=== PATIENT | female | born 1995 | race Caucasian/White ===

== ENCOUNTER 2016-11-11 09:56 | Inpatient (IN) | payer OTHER ==
[~2016-11-11] VITALS: Ht 160 cm; Wt 65.3 kg
[2016-11-11] MEDS ORDERED: PRENATAL COMPLE1 TAB PO (10:22)
[2016-11-11] MEDS ORDERED: FERROUS SULFAT325 MG PO (10:24)
[2016-11-11 10:25] VITALS: Ht 160 cm; Wt 65.3 kg
[2016-11-11 10:56] LABS: APPEARANCE HAZY (CLEAR); COLOR YELLOW (YELLOW)
[2016-11-11 10:57] LABS: BACTERIA FEW /hpf (NONE SEEN); BILIRUBIN NEGATIVE (NEGATIVE); GLUCOSE NEGATIVE (NEGATIVE); KETONE NEGATIVE (NEGATIVE); LEUKOCYTE ESTERASE NEGATIVE (NEGATIVE); MUCUS <1+ /lpf (NONE SEEN); NITRITE NEGATIVE (NEGATIVE); PROTEIN TRACE mg/dL (NEGATIVE); SPECIFIC GRAVITY 1.015 (1.005-1.020); UROBILINOGEN NORMAL (NORMAL); WHITE CELLS - URINE 0-5 /hpf (0-5)
[2016-11-11 12:01] LABS: HEMATOCRIT 34.8 % (36.0-48.0); HEMOGLOBIN 11.6 g/dL (12-16); MCH 30.4 pg (26.0-34.0); MCHC 33.3 g/dL (31.0-37.0); MCV 91.3 fL (80.0-100.0); MEAN PLATELET VOLUME 10.1 fL (7.4-10.4); RBC 3.81 10x6/uL (4.00-5.40); RDW 13.5 % (11.5-14.5); WBC 12.5 10x3/uL (4.8-10.8)
[2016-11-11 19:21] LABS: UDS - AMPHET NEGATIVE QUAL (NEGATIVE); UDS - BARB NEGATIVE QUAL (NEGATIVE); UDS - BENZO NEGATIVE QUAL (NEGATIVE); UDS - COCAINE NEGATIVE QUAL (NEGATIVE); UDS - METH NEGATIVE QUAL (NEGATIVE); UDS - OPIATE NEGATIVE QUAL (NEGATIVE); UDS - PCP NEGATIVE QUAL (NEGATIVE); UDS - THC NEGATIVE QUAL (NEGATIVE)
[2016-11-12] VITALS (15 sets, daily range): BP systolic 111–131; BP diastolic 59–92
--- NOTE | 2016-11-12 02:48 | NUR ---
0231 VIABLE BABY GIRL DELIVERED CORD BLOOD AND GASES DONE AND SENT OUT, [place].
--- NOTE | 2016-11-12 03:42 | NUR ---
FUNDUS AT UMBILICUS AND FIRM, LOCHIA SCANT
--- NOTE | 2016-11-12 03:47 | NUR ---
PT RECEIVED VIA RECOVERY ROOM NURSE AT THIS TIME. AAOX3. ORIENTED PT TO ROOM AND CALL LIGHT. VERBALIZED UNDERSTANDING. VSS. IV NOTED TO LEFT WRIST INFUSING NS @ 125 AND 20 OF PIT WITH MEPERIDINE TECH ED/WOODSHOP TEACHER. IV SITE- PATENT. DRESSING CDI. INSTRUCTED PT ON HOW TO USE TECH ED/WOODSHOP TEACHER. PT VERBALIZES UNDERSTANDING. HEART RRR. LUNG SOUNDS CLEAR BILATERALLY. INSTRUCTED PT ON HOW TO USE IS. PT VERBALIZES UNDERSTANDING. PULLED 2000 AT THIS TIME. BOWEL SOUNDS ACTIVE X4 QUADRENTS. ABDOMEN SOFT WITH TENDERNESS. LOW TRANSVERSE INCISION NOTED TO ABDOMEN WITH BULKY DRESSING. DRESSING CDI. FUNDUS FIRM AND MIDLINE U/U. LIGHT LOCHIA RUBRA NOTED TO NIDA PAD AT THIS TME. SCDS INITIATED TO BLE. PT RATES PAIN 2/10 STATES SHE STILL FEELS NUMB. PT DENIES NEEDS AT THIS TIME. BED LOW. PHONE AND CALL LIGHT IN REACH. SRX2.
--- NOTE | 2016-11-12 04:39 | NUR ---
EMPTIED 1500 CC KIRTI URINE FROM JIM AT THIS TIME. PT REQUESTS ICE WATER. FOB AT BEDSIDE. PT STATES PAIN IS 2/10. DENIES OTHER NEEDS. BED LOW. PHONE AND CALL LIGHT IN REACH. SRX2.
--- NOTE | 2016-11-12 05:30 | NUR ---
PT STATES SHE IS BEGINNING TO FEEL MORE PAIN. RATES PAIN 8/10. ADMINISTERED TORADOL IVP PER ORDERS AT THIS TIME. PT DENIES OTHER NEEDS. BED LOW. PHONE AND CALL LIGHT IN REACH. SRX2.
--- NOTE | 2016-11-12 06:05 | NUR ---
REASSESSED PTS PAIN AT THIS TIME. PT STATES PAIN IS BETTER. RATES PAIN 3/10. AT THIS TIME. PT DENIES NEEDS. VITAL SIGNS CONTINUE TO REMAIN STABLE.
--- NOTE | 2016-11-12 07:15 | NUR ---
CHANGED PT PINK AND BLUE PAD AT THIS TIME. MODERATE LOCHIA RUBRA NOTED TO PADS. PLACED NEW PADS AND NIDA PAD ON PT. PT DENIES NEEDS AT THIS TIME. BED LOW. PHONE AND CALL LIGHT IN REACH. SRX2.
--- NOTE | 2016-11-12 07:20 | NUR ---
PT SITTING IN BED TYPING ON PHONE. SHIFT ASSESSMENT WAS DONE AND DOCUMENTED. CHANGED MARY AND PAD WITH MODERATED BLEEDING BUT SCANT WHEN ASSESSING FUNDUS WHICH WAS 1U FIRM AND MIDLINE. 150ML OF URINE DRAINING TO JIM BAG WAS YELLOW, SLIGHTLY CLOUDY. PROVIDED FRESH ICEWATER AND ENCOURAGED TO DRINK. STATES PAIN 2 ON NUMERIC SCALE. STATES 'I DON'T HAVE TO PUSH THE BUTTON VERY OFTEN TO KEEP IT FROM HURTING'. S/R UP X 2, BED IN LOWEST POSITION, CALL LIGHT WITHIN REACH. WILL CONTINUE TO MONITOR.
[2016-11-12 07:26] LABS: RAPID PLASMA REAGIN Non Reactive (Non Reactive)
--- NOTE | 2016-11-12 07:45 | NUR ---
PATIENT IS AWAKE AND ALERT, DRINKING HER CL BREAKFAST. DISCUSSED THE POC FOR TODAY. SHE UNDERSTANDS THAT HER CATHETER AND IVF WILL BE DC'D TODAY AT 1500. SHE DISCUSSED HER LABOR AND DELIVERY AND WE DISCUSSED HER WOUND CARE. FOB IS NOT IN THE ROOM AT THIS TIME. STRAIGHTENED HER BELONGINGS AND DISCUSSED HER DIET. ASSESSMENT COMPLETED. VSS. CALL LIGHT IS WITHIN HER REACH. MONITORING.
--- NOTE | 2016-11-12 10:30 | NUR ---
PATIENT SITTING UP IN HER BED, HEAD ELEVATED IN HI FOWLERS, SHE IS HER INFANT. SHE DENIES NEEDS AT THIS TIME.
--- NOTE | 2016-11-12 11:45 | NUR ---
PERIPADS CHANGED. BLEEDING IS LIGHT. HER FF,MIDLINE, AT THE UMBILICUS. URINE REMAINS PATENT TO THE BEDSIDE DRAINAGE, IT IS GOLD COLORED. ENCOURAGED HER TO DRINK FLUIDS. SHE STATES THAT SHE IS HUNGRY AND WONDERS WHEN SHE WILL RECEIVE REGULAR DIET. EXPLAINED THE REASONS THAT WE WAIT AT LEAST 12 HOURS. SHE EXPRESSED UNDERSTANDING.
--- NOTE | 2016-11-12 12:46 | OP ---
PATIENT NAME: INDRA MCKEON MEDICAL RECORD: [id number] :94 LOCATION:[facility]14 ADMISSION DATE:11/11/16 SURGEON: DEBORAH EPSTEIN MD DATE OF OPERATION: 11/12/2016 PREOPERATIVE DIAGNOSES: 1. Intrauterine at 41 weeks, 0 days. 2. Nonreassuring heart rate tracing remote from delivery. POSTOPERATIVE DIAGNOSES: 1. Intrauterine at 41 weeks, 0 days. 2. Nonreassuring heart rate tracing remote from delivery. SURGEON: Deborah Epstein MD ANESTHESIA: Blue Venegas CRNA and Dr. Jefferson with epidural anesthesia. PROCEDURE: Emergent primary low-transverse . FINDINGS: Delivery of viable female infant from vertex occiput posterior presentation via emergent primary low-transverse under epidural anesthesia at 2:31 a.m. with weight of 6 pounds 9 ounces and scores of 8 and 9 at 1 and 5 minutes respectively. No nuchal cord was noted. The cord was clamped and cut. The infant was bulb suctioned and handed to awaiting pediatric nursing personnel. The placenta was delivered manually intact and passed off the field as specimen. Cord blood was obtained, 20 units of Pitocin and 1 liter of normal saline was begun IV. The fundus was noted to be firm. Normal appearing uterus, ovaries and tubes bilaterally. The patient went to the recovery room in stable condition and the infant to the nursery. DESCRIPTION OF PROCEDURE: After informed consent was given, the patient was taken to the operating room where epidural anesthesia was bolused and found to be adequate. She was placed in a dorsal supine position with a rightward tilt due to intolerance of a leftward tilt. She was prepped and draped sterilely. A Tate catheter was already in place with clear urine return noted. A Pfannenstiel skin incision was then made with the scalpel and carried down to the underlying layer of fascia. The fascia was incised in the midline and the fascial incision extended bilaterally with the Roldan scissors. The superior portion of the fascial incision was grasped with 2 Connor clamps and the rectus muscles dissected off sharply and bluntly. Attention was then turned to the inferior portion of the fascial incision, which was again grasped with 2 Connor clamps and the rectus muscles dissected off sharply and bluntly. The rectus muscles were in the midline, the peritoneum identified and entered bluntly with a finger. This incision was extended superiorly and inferiorly with good visualization of the bladder. The bladder blade was inserted and the vesicouterine peritoneum was grasped with smooth pickups and entered sharply with Metzenbaum scissors. This incision was extended bilaterally and a bladder flap created digitally. The bladder blade was reinserted. The hysterotomy was created with a knife. This was extended bilaterally bluntly and the 's head delivered atraumatically. The cord was clamped and cut. The infant was bulb suctioned and handed to awaiting pediatric nursing personnel. The placenta was delivered manually expressed and passed off the field as specimen. Cord blood was obtained. The uterus was exteriorized, cleared of all clots and debris. The interior of the uterus was wiped with a moist lap sponge. The hysterotomy was closed with 0 chromic in a running locked fashion in 2 layers, OPERATIVE REPORT [id number] INDRA MCKEON the second imbricating the first. The uterus was returned to the abdomen. The abdomen was irrigated profusely and noted to be hemostatic. Johnathan dust was placed over the hysterotomy to aid additionally in hemostasis. The rectus muscles were reapproximated in the midline with 3 interrupted chromic sutures. The fascia was closed with #1 Vicryl in a running fashion, locking the first suture. The subcutaneous tissue was irrigated, any bleeders cauterized with Bovie and when noted to be sufficiently dry was closed with 3-0 Vicryl in a running fashion in 2 layers and the skin was closed with 3-0 Monocryl in a subcuticular fashion. Dermabond and pressure dressing were applied. Clear urine was noted at completion of the procedure. The patient tolerated the procedure well. Sponge, lap, needle and instrument counts reported correct times 2 and the patient went to the recovery room in stable condition and the to the nursery. ESTIMATED BLOOD LOSS: 800 cc. URINE OUTPUT: 180cc. SPECIMENS: Placenta and cord blood. COMPLICATIONS: None. TRANSINT:[id number] Voice Confirmation ID: [id number] DOCUMENT ID: [id number] DEBORAH EPSTEIN MD at 1248 CC: [id number] DICTATION DATE: 11/12/16334 LIFESTYLE COORDINATOR: 11/12/16 1214 ADM IN [facility] [address] [id number]
--- NOTE | 2016-11-12 13:10 | NUR ---
PATIENT IS RESTING IN HER BED WITHOUT COMPLAITS AT THIS TIME. SHE IS BUSY WITH HER CELL PHONE.
[2016-11-12 13:58] LABS: BASOPHILS 0.1 % (0.0-2.0); EOSINOPHILS 0.1 % (0-7); HEMATOCRIT 31.6 % (36.0-48.0); HEMOGLOBIN 10.5 g/dL (12-16); IMMATURE GRANULOCYTES 0.3 % (0-5); LYMPHOCYTES 14.8 % (15-50); MCH 30.2 pg (26.0-34.0); MCHC 33.2 g/dL (31.0-37.0); MCV 90.8 fL (80.0-100.0); MEAN PLATELET VOLUME 9.3 fL (7.4-10.4); NEUTROPHILS 78.7 % (40-80); RBC 3.48 10x6/uL (4.00-5.40); RDW 13.4 % (11.5-14.5); WBC 14.9 10x3/uL (4.8-10.8)
[2016-11-12 13:59] LABS: PLATELET COUNT 183 10x3/uL (130-400)
--- NOTE | 2016-11-12 14:23 | NUR ---
ROXY SITTING UP VISITING WITH BROTHER IN LAW AND FEMALE VISITOR. SHE DENIES NEEDS AT THIS TIME. ARCHITECTURAL DRAFTSPERSON IN USE FOR PAIN CONTROL.
--- NOTE | 2016-11-12 15:40 | NUR ---
PATIENT TRANSFERRED OVER TO ROOM 1257 AFTER DISCUSSING PLAN FOR CARE TRANSFER TO LABOR AND DELIVERY. SHE VOICES UNDERSTANDING AND ACCEPTANCE. SHE IS WEARING HER SCD'S AT THIS TIME. SHE PLANS TO MAYBE SHOWER LATER TONIGHT. SHE HASNT YET VOIDED. JIM CATHETER WAS REMOVED AT 1510 FOLLOWING DEFLATION OF THE BALOON. HER IV TO THE LEFT HAND IS SL. VSS. HER BELONGINGS ARE ALL MOVED AND PLACED WITHIN HER REACH OR IN APPROPRIATE PLACES FOR HER USE. SHE IS ALONE AT THIS TIME. SHE HAS SOME TACO BALES THAT HER BROTHER IN LAW BROUGHT TO HER AND ASKS IF SHE CAN EAT REGULAR FOOD. I ASSESSED HER BOWEL SOUNDS. THEY ARE ACTIVE THOUGH SHE HASN'T YET PASSED GAS. DISCUSSED WITH VANGIE ZARATE ON LABOR AND DELIVERY. SHE AGREES THAT SHE CAN EAT. HER BULKY DRESSING REMAINS INTACT. IS CLEAN AND DRY. SHE WAS ABLE TO TRANSFER FROM BED TO WHEELCHAIR WITH ONE PERSON ASSIST. DENIED DIZZINESS.
--- NOTE | 2016-11-12 16:45 | NUR ---
THIS RN TO BEDSIDE FOR INTRODUCTIONS. TO ASSESS PT'S PAIN AND NEEDS. PT SITTING IN HIGH BARRETT'S AA&O X 4. SCD WRAPS BILATERALLY, CONNECTED TO PUMP.PUMP IS ON AND FUNCTIONING. PT RATES PAIN 5/10 WITH MOVEMENT. RATES PAIN 0/10 IF NOT MOVING. REPORT REC'D FROM Cassandra BATRES RN THAT PT HAS BOWEL SOUNDS PRESENT X 4. REG DIET TRAY TO BE ORDERED AND PT HAS TACO'S AT BEDSIDE THAT SHE WISHES TO EAT. PT INFORMED THAT SHEMAY EAT THEM. V/S OBTAINED. CONTINUED POC DISCUSSED W/PT. PT VEBALIZES UNDERSTANDING. PT DECLINES OFFERS TO BRING HER ANYTHING ELSE TO EAT OR DRINK AT THIS TIME. BED LOW, SIDE RAILS UP X 2. CALL LIGHT AND PHONE AT PT'S SIDE.
--- NOTE | 2016-11-12 17:20 | NUR ---
THIS RN TO BEDSIDE FOR GENTAMYCIN ADMIN. PT'S SALINE LOCK FLUSHED W/5ML NS. IV TUBING CONNECTED TO SITE. GENTAMYCIN 80MG INFUSION AT STARTED VIA PUMP TO INFUSE AT 100ML/HR. PT DENIES NEEDS AT THIS TIME OTHER THAN INQUIRES ABOUT INFANT IN NURSERY. THIS RN TO NBN TO INQUIRE. CURRENTLY HAVING HEARING SCREEN PERFORMED. PT INFORMED. PT VEBALIZES UNDERSTANDING. PT INFORMED THAT NBN NURSE HAS BEEN INFORMED THAT SHE WISHES TO HAVE ONCE TEST IS COMPLETED.
--- NOTE | 2016-11-12 18:33 | NUR ---
ROUNDS MADE. PT SITTING UP IN BED W/INFANT ON HER CHEST. IV ANTIBIOTICS COMPLETED AT THIS TIME. LINE DISCONTINUED. SITE SALINE LOCKED. PT DENIES NEEDS AT PRESENT.
--- NOTE | 2016-11-12 19:35 | NUR ---
REC'D PT IN BED. FAMILY AT BEDSIDE. OK WITH PT IF THEY ARE PRESENT WHILE RN PERFORMS ASSESSMENT. RATES PAIN 8/10 TO ABDOMEN. RESP EVEN AND UNLABORED. LUNGS CLEAR BILATERALLY. BOWEL SOUNDS PRESENT X4. FUNDUS FIRM U/1. MODERATE LOCHIA NOTED. PT VERBALIZES NEED TO VOID AND CHANGE PAD. SCDS REMOVED. ASSISTED PT UP TO BATHROOM. PADS ON BED CHANGED. PT BACK TO BED. VOIDED 500CC CLEAR YELLOW URINE. WILL ADMINISTER PAIN MEDICATION PER REQUEST. ASHLEY ZARATE
--- NOTE | 2016-11-12 19:44 | NUR ---
PT MEDICATED FOR C/O PAIN 04/21 WITH PERCOCET . SEE E-MAR FOR MEDICATION ADMINISTRATION. ASHLEY ZARATE
--- NOTE | 2016-11-12 19:55 | NUR ---
AMPICILLIN 2GRAMS INFUSING AT THIS TIME PER PUMP TO LHAND IV. IV SITE CLEAR AND PATENT. ASHLEY ZARATE
--- NOTE | 2016-11-12 21:01 | NUR ---
ANTIBIOTIC INFUSION COMPLETE. ASSISTED UP TO SHOWER. ASHLEY ZARATE
--- NOTE | 2016-11-12 21:48 | NUR ---
PT C/O PAIN 03/21. MEDICATED WITH IBUPROFEN 600MG. CUP OF ICE PROVIDED FOR DR. WEBBER BROUGHT IN BY FAMILY. FRESH ICE CAP TO ABDOMEN. INFANT AT BREAST AT THIS TIME. GOOD LATCH AND SUCK NOTED. ASHLEY ZARATE
--- NOTE | 2016-11-12 23:00 | NUR ---
ROOM CHECK, PT RESTING WITH EYES CLOSED. RESP EVEN AND UNLABORED. INFANT IN NSY UNDER NURSE OBSERVATION. ASHLEY ZARATE
--- NOTE | 2016-11-13 00:42 | NUR ---
PAIN 5/10 AT THIS TIME. INCISIONAL BURNING WITH MILD ABD CRAMPING. PT CURRENTLY INFANT. REQUESTED THAT V/S BE TAKEN WHEN INFANT COMPLETES NURSING. ICE WATER AND CUP OF ICE GIVEN PER REQUEST. ICE PACK PLACED TO ABD PER PT REQUEST. BED IN LOW POSITION WITH UPPER SIDE RAILS UP X2, CL/PHONE WITHIN REACH.
[2016-11-13 01:25] VITALS: BP 109/70
--- NOTE | 2016-11-13 01:25 | NUR ---
VS TAKEN, WNL. GENTAMYCIN INFUSION BEGAN PER PUMP. PT RATES PAIN 4/10 POST MEDICATION. PT HAD BEEN UP TO VOID AND CHANGE NIDA PAD. DENIES FURTHER NEEDS. CALL LIGHT IN REACH. ASHLEY ZARATE
--- NOTE | 2016-11-13 04:11 | NUR ---
ROUNDS MADE. PT RESTING WITH EYES CLOSED AT THIS TIME. RESPIRATIONS REGULAR, NO S/S OF DISTRESS NOTED. BED IN LOW POSITION WITH UPPER SIDE RAILS RAISED X2. CL/PHONE WITIN REACH. WILL CONT TO MONITOR AND ASSIST PRN.
[2016-11-13 04:40] VITALS: BP 111/54
--- NOTE | 2016-11-13 04:44 | NUR ---
VS TAKEN AND WNL. PT MEDICATED FOR C/O PAIN 04/21. IV DC'D AT THIS TIME PER PT REQUEST. NO FURTHER NEEDS AT THIS TIME. ASHLEY ZARATE
--- NOTE | 2016-11-13 07:45 | NUR ---
Pt calls for assistance, this rn to room. She ask for help getting up to void, head of bed raised, pt is shown how to do this and encouragment given and pt is able to get up and walk to bathroom without assistance. Voids without complaint, shown how to use sravanthi pad over incision to prevent irration to site. Fundus firm upon massage at u/u with light bleeding, she denies clots with voids.
[2016-11-13 08:00] VITALS: BP 111/64
--- NOTE | 2016-11-13 08:00 | NUR ---
Am assessment and vital signs as charted on flowsheet. simithicone offered and given for pt complaint of gas. Also offered warm fluids but she denies, explained that she needs try and ambulate out of room and in halls or to nursery at least twice today, she states her understanding and will call for nurse assistance. Towels placed in bathroom for shower when she is ready. brought to room for feeding. Pt denies any other needs at this time.
--- NOTE | 2016-11-13 10:09 | NUR ---
Pain med given per pt request as charted on emar. Rates pain at 7/10, to breast at this time and pt states understanding that cramping will be more with . Offered to help out of bed to sit on sofa or chair at bedside for feeding but she denies. Side rails up x 2 with phone and call light in reach.
--- NOTE | 2016-11-13 11:45 | NUR ---
Pt calls nurse to room with questions about where she is able to walk with . Pt and her grandmother amb around women services unit, and understands she can go to the nursery down but no farther. Denies needs at this time.
--- NOTE | 2016-11-13 12:30 | NUR ---
Pt to shower and reassured she is able to dress in her own clothing. family member at bedside with infant in crib. Denies any needs and will call if nurse if needed.
--- NOTE | 2016-11-13 13:00 | NUR ---
Pain med given as charted. Rates pain at 7/10, infant to breast at this time. Large cup of ice and lemon craig soda per request. Side rails up x 2 with phone and call ligth in reach.
--- NOTE | 2016-11-13 17:36 | NUR ---
1729- PERCOCET 10 MG GIVE PO PER PT REQUEST FOR 810 LOW ABD PAIN, LBP AND RIGHT SHOULDER PAIN. ALSO C/O "GAS" STATES "I HAD THE SAME PAIN WHEN I HAD MY GALLBLADDER OUT. MYLICON 80 MG GIVEN PO FOR RELIEF. ALSO DISCUSSED SIDE LYING RELIEF MEASURES AND AMBULATION TO PROMOTE PASSING GAS. VERBALIZED UNDERSTANDING. [id number] WAS ALSO GIVEN AT THIS TIME AFTER EXPLAINING PURPOSE OF MEDICATION. SIDE RAILS UP X 2. VISITOR AT BEDSIDE WITH INFANT IN ARMS. FRESH WATER GIVEN AND DINNER TRAY AT BEDSIDE.
--- NOTE | 2016-11-13 19:25 | NUR ---
RN TO PT BS FOR KAMLA. PT RESTING IN BED IN HIGH FOWLERS POSITION IN NO ACUTE DISTRESS. PT IS A 21YO G1 NOW P1 WITH PRIMARY C/S YESTERDAY @ 0231 OF VIABLE FEMALE INFANT @ 41 WKS GESTATION. AAOX3. HR REGULAR. LUNGS CTAB. ABDOMEN MILDLY DISTENDED AND TENDER WITH PALPATION. BS ACTIVE TIMES 4. LOWER ABDOMINAL INCISION NOTED. NO STERI STRIPS OR CHRISTINA IN PLACE. INCISION WELL PROXIMATED WITH NO REDNESS OR EDEMA NOTED AT SITE. PT DENIES DIFFICULTY VOIDING, STATES SHE HAS PASSED GAS BUT HAS NOT HAD A BM SINCE C/S. FUNDUS NOT PALPATED. LOCHIA RUBRA SCANT. NIDA PAD AND PANTIES IN PLACE. NO SWELLING NOTED TO UPPER OR LOWER EXTREMITIES BILATERALLY. NO IV ACCESS. PT C/O PAIN, RATES 4/10, REQUESTS MEDICAITON. 1 TAB IBUPROFEN PROVIDED AT THIS TIME. PT STATES SHE IS TOLERATING A REGULAR DIET WELL. PT DENIES ANY FURTHER NEEDS. BED IN LOW POSITION, SIDE RAILS UP TIMES 2, CALL LIGHT AND PHONE IN REACH. SO AT PT BS FOR SUPPORT AND ASSISTANCE. INFANT REMAINS AT PT BS FOR COUPLET CARE. WILL CONT TO MONITOR PT STATUS.
--- NOTE | 2016-11-13 19:50 | NUR ---
PT AMBULATING IN [place] WITH IN NO ACUTE DISTRESS.
[2016-11-13 19:51] VITALS: BP 117/62
--- NOTE | 2016-11-13 21:10 | NUR ---
RN CALLED TO PT BS. PT RESTING IN BED IN HIGH FOWLERS POSITION IN NO ACUTE DISTRESS. ADDITIONAL LINENS PROVIDED TO PT SO FOR NIGHT. PT DENIES ANY FURTHER NEEDS AT THIS TIME. BED IN LOW POSITION, SIDE RAILS UP TIMES 2, CALL LIGHT AND PHONE IN REACH. SO REMAINS AT PT BS FOR SUPPORT AND ASSISTANCE. INFANT REMAINS AT PT BS FOR COUPLET CARE. WILL CONT TO MONITOR PT STATUS.
--- NOTE | 2016-11-13 23:11 | NUR ---
RN TO PT BS TO PERFORM VS. PT RESTING IN BED IN LEFT LATERAL POSITION, WITH EYES CLOSED, IN NO ACUTE DISTRESS. RESPIRATIONS EVEN AND UNLABORED. VS DEFERED. BED IN LOW POSITION, SIDE RAILS UP TIMES 2, CALL LIGHT AND PHONE IN REACH. SO REMAINS AT PT BS FOR SUPPORT AND ASSISTANCE. AT PT BS FOR COUPLET CARE. WILL CONT TO MONITOR.
[2016-11-13 23:52] VITALS: BP 109/67
--- NOTE | 2016-11-13 23:52 | NUR ---
RN CALLED TO PT BS WITH C/O PAIN, RATES 03/21, REQUESTS MEDICATION. 1 TAB PERCOCET 10 PROVIDED AT THIS TIME. PT RESTING IN BED IN HIGH FOWLERS POSITION IN NO ACUTE DISTRESS. VS TAKEN, WNL. PT DENIES ANY FURTHER NEEDS AT THIS TIME. BED IN LOW POSITION, SIDE RAILS UP TIMES 2, CALL LIGHT AND PHONE IN REACH. SO REMAINS AT PT BS FOR SUPPORT AND ASSISTANCE. INFANT REMAINS AT PT BS FOR COUPLET CARE. WILL CONT TO MONITOR.
--- NOTE | 2016-11-14 02:31 | NUR ---
RN TO PT BS FOR ROUNDS. PT RESTING IN BED IN LEFT LATERAL POSITION IN NO ACUTE DISTRESS. PT DENIES ANY NEEDS AT THIS TIME. BED IN LOW POSITION, SIDE RAILS UP TIMES 2, CALL LIGHT AND PHONE IN REACH. SO REMAINS AT PT BS FOR SUPPORT AND ASSISTANCE. REMAINS AT PT BS FOR COUPLET CARE. WILL CONT TO MONITOR PT STATUS.
--- NOTE | 2016-11-14 06:30 | NUR ---
RN TO PT BS FOR ROUNDS. PT RESTING IN BED IN HIGH FOWLERS POSITION, HOLDING , IN NO ACUTE DISTRESS. PT DENIES ANY NEEDS AT THIS TIME. BED IN LOW POSITION, SIDE RAILS UP TIMES 2, CALL LIGHT AND PHONE IN REACH. SO REMAINS AT PT BS FOR SUPPORT AND ASSISTANCE. REMAINS AT PT BS FOR COUPLET CARE. WILL GIVE REPORT TO AM SHIFT.
--- NOTE | 2016-11-14 07:00 | NUR ---
ASSUME CARE OF THIS PATIENT. SLEEPING IN SEMI-FOWLERS POSITION WITH IN BED. AROUSED PATIENT AND LET HER KNOW THAT NEEDS TO BE IN CRIB WHILE SHE IS SLEEPING FOR INFANT SAFETY REASONS STATES "I DIDN'T MEAN TO FALL ASLEEP" AND VERBALIZED UNDERSTANDING. DESIRES TO GO BACK TO SLEEP. ASSISTED PLACING INFANT IN CRIB BY BED. FOB SLEEPING ON COUCH. SIDE RAILS UP X 2, CALL LIGHT IN REACH. TO CALL IF ANYTHING IS NEEDED. WILL COMPLETE SHIFT ASSESSMENT AFTER BREAKFAST.
--- NOTE | 2016-11-14 07:46 | NUR ---
REQUESTED PAIN MEDICATION FOR 8/10 INCISIONAL BURNING, CRAMPING. DISCUSSED MEDICATION OPTIONS. DESIRED PERCOCET 10 MG AT THIS TIME. SHIFT ASSESSMENT COMPLETED. INSPIRATORY WHEEZING NOTED BONI UPPER LOBES, PT WITH HX OF ASTHMA WITH LAST USE OF INHALER SEVERAL MONTHS AGO. DENIES NEEDING AT THIS TIME. O2 SAT 100%. ENCOURAGED DEEP BREATHING AND COUGHING. NOTIFY RN IF DIFF BREATH. DC EDUCATION STARTED. ANTICIPATE DC HOME TODAY. RETURNED TO ROOM BY Krista LE RN FOR AT THIS TIME. NO FURTHER REQUESTS FROM PATIENT. SIDE RAILS UP X 2, CALL LIGHT IN REACH. FOB IN ROOM. PLANS TO AMBULATE AFTER .
[2016-11-14 07:47] VITALS: BP 122/61
--- NOTE | 2016-11-14 07:50 | NUR ---
SITTING UP IN BED. 3/10 PAIN AT THIS TIME. SAYS SHE AMBULATED IN [place]. NO REQUESTS. WAITING ON MD VISIT. INFANT IN ARMS. FOB PRESENT.
[2016-11-14] MEDS ORDERED: ALBUTEROL IH (08:02)
--- NOTE | 2016-11-14 09:42 | NUR ---
CURRENTLY . DISCUSSED RHOGAM AND INFORMATION GIVEN ON TDAP VACCINATION. WILL GIVE RHOGAM AFTER AND TDAP IF PATIENT DESIRES.
--- NOTE | 2016-11-14 09:52 | NUR ---
DESIRES TDAP PRIOR TO DC.
--- NOTE | 2016-11-14 10:50 | NUR ---
FINISHED . TDAP AND RHOGAM GIVEN IM AFTER CONSENT FROM PATIENT. DENIES NEEDING ANYTHING AT THIS TIME. AMBULATING PRN. INFANT AND FOB IN ROOM.
--- NOTE | 2016-11-14 11:50 | NUR ---
DR ROME VISITED. PLANS TO DC HOME TODAY. WAS INFORMED UP PT WITH UPPER LOBE BILATERAL WHEEZING WITH HX OF ASTHMA AND LAST INHALER USED FEW MONTHS AGO. PULSE OX 100%.
--- NOTE | 2016-11-14 12:23 | NUR ---
READY FOR DC HOME. AWAITING SKY DIVER VISIT TO DC . FOB AND IN ROOM.
--- NOTE | 2016-11-14 13:35 | NUR ---
COMPLETED DISCHARGE INSTRUCTIONS INCLUDING POST-OP CARE, PP DEPRESSION, S&S INFECTION, /BREAST CARE, MEDICATION ADMINISTRATION, COMMUNITY RESOURCES AND FOLLOW-UP. QUESTIONS ANSWERED. HAS RX, INFORMED SHE CAN TAKE EITHER MOTRIN OR PERCOCET AT ANY TIME. VERBALIZED UNDERSTANDING OF INFORMATION. FOB, AND VISITORS IN ROOM. WAITING ON DC OF INFANT.
--- NOTE | 2016-11-14 15:55 | NUR ---
AMBULATING IN ROOM. SAYS HER PAIN IS MUCH BETTER NOW 10/22. WAITING ON SUPERVISOR MELT HOUSE FOR INFANT DC.
--- NOTE | 2016-11-14 17:19 | NUR ---
DC'D VIA WHEELCHAIR BY WENDI TO CAR. IN CAR SEAT. HAS PRESCRIPTIONS AND DC INSTRUCTIONS. ALL BELONGINGS REMOVED FROM ROOM.
== END 2016-11-14 17:19 | disposition home or self-care (01) | DRG 765 ==
LOC: D.WS 09:56 → D.LD 09:56 → D.WS 11-12 03:51 → D.LD 11-12 04:00
PROVIDERS: Specialist; ADMIT Obstetrics & Gynecology
PROC: 10D00Z1 Extraction of Products of Conception, Low, Open Approach (ICD-10-PCS; principal; 2016-11-12 02:10)
DX: O36.5930 Maternal care for other known or suspected poor fetal growth, third trimester, not applicable or unspecified (principal); O75.3 Other infection during labor; O76 Abnormality in fetal heart rate and rhythm complicating labor and delivery; Z3A.40 40 weeks gestation of pregnancy; Z37.0 Single live birth; O26.893 Other specified pregnancy related conditions, third trimester; Z67.91 Unspecified blood type, Rh negative; B96.89 Other specified bacterial agents as the cause of diseases classified elsewhere; N76.0 Acute vaginitis